=== PATIENT | female | born 1985 | race Caucasian/White ===

== ENCOUNTER 2017-07-03 09:12 | Emergency (ER) | payer OTHER ==
[~2017-07-03] VITALS: Ht 157.5 cm; Wt 84.0 kg
[~2017-07-03 09:12] MED LIST: ACYCLOVIR400 MG PO; FLEXERIL PO; IBUPROFEN200 MG PO; IRON325 M1 PO; NAPROSYN500 MG PO; PRENATA4 PO; ULTRAM50 MG PO
[2017-07-03 10:34] LABS: INFLUENZA A NONE DETECTED (NONE DETECT); INFLUENZA B NONE DETECTED (NONE DETECT)
[2017-07-03 10:45] VITALS: BP 136/79
== END 2017-07-03 10:45 | disposition home or self-care (01) | DRG 866 ==
LOC: ED 09:12
PROVIDERS: Emergency Medicine
DX: B34.9 Viral infection, unspecified (principal)

== ENCOUNTER 2018-02-23 18:17 | Emergency (ER) | payer OTHER ==
[~2018-02-23] VITALS: Ht 157.5 cm; Wt 77.0 kg
[2018-02-23] MEDS ORDERED: LISINOPRIL2.5 MG PO (18:31)
[2018-02-23 19:00] LABS: URINE BILIRUBIN - DIPSTICK NEGATIVE (NEGATIVE); URINE BLOOD DIPSTICK NEGATIVE (NEGATIVE); URINE COLOR YELLOW; URINE GLUCOSE - DIPSTICK NEGATIVE (NEGATIVE); URINE KETONE NEGATIVE (NEGATIVE); URINE LEUK ESTERASE NEGATIVE (NEGATIVE); URINE NITRITE - DIPSTICK NEGATIVE (Negative); URINE PROTEIN - DIPSTICK NEGATIVE (NEG-TRACE); URINE SPECIFIC GRAVITY <=1.005; URINE UROBILINOGEN - DIPSTICK 0.2 E.U./dL (0.2)
[2018-02-23 19:01] LABS: URINE CLARITY CLEAR
[2018-02-23] MEDS ORDERED: DIFLUCAN100 M1 PO (19:09)
[2018-02-23 19:15] VITALS: BP 130/70
== END 2018-02-23 19:15 | disposition home or self-care (01) ==
LOC: ED 18:17
DX: B37.3 Candidiasis of vulva and vagina (principal); I10 Essential (primary) hypertension; L29.2 Pruritus vulvae

== ENCOUNTER 2018-10-29 18:08 | Emergency (ER) | payer OTHER ==
[~2018-10-29] VITALS: Ht 157.5 cm; Wt 87.0 kg
[~2018-10-29 18:08] MED LIST changes: +DIFLUCAN100 M1 PO; +LISINOPRIL2.5 MG PO
[2018-10-29] MEDS ORDERED: LISINOPRIL5 MG PO (18:16)
[2018-10-29] MEDS ORDERED: ALLEGRA-D 2424 HOUR PO (18:26)
[2018-10-29 18:35] VITALS: BP 122/82
== END 2018-10-29 18:35 | disposition home or self-care (01) ==
LOC: ED 18:08
DX: J30.9 Allergic rhinitis, unspecified (principal); H69.93 Unspecified Eustachian tube disorder, bilateral; I10 Essential (primary) hypertension

== ENCOUNTER 2020-12-28 14:06 | Emergency (ER) | payer OTHER ==
[~2020-12-28] VITALS: Ht 157.5 cm; Wt 91.4 kg
[~2020-12-28 14:06] MED LIST changes: +ALLEGRA-D 2424 HOUR PO; +LISINOPRIL5 MG PO
[2020-12-28 14:37] LABS: URINE BILIRUBIN - DIPSTICK NEGATIVE (NEGATIVE); URINE BLOOD DIPSTICK NEGATIVE (NEGATIVE); URINE CLARITY CLEAR; URINE COLOR YELLOW; URINE GLUCOSE - DIPSTICK NEGATIVE (NEGATIVE); URINE KETONE NEGATIVE (NEGATIVE); URINE LEUK ESTERASE NEGATIVE (Negative); URINE NITRITE - DIPSTICK NEGATIVE (Negative); URINE PROTEIN - DIPSTICK NEGATIVE (NEG-TRACE); URINE SPECIFIC GRAVITY 1.025; URINE UROBILINOGEN - DIPSTICK 0.2 E.U./dL (0.2)
[2020-12-28] MEDS ORDERED: METRONIDAZOL500 MG PO (15:52)
[2020-12-28 15:58] VITALS: BP 128/72
== END 2020-12-28 16:08 | disposition home or self-care (01) ==
LOC: ED 14:06
DX: U07.1 COVID-19 (principal); N76.0 Acute vaginitis; I10 Essential (primary) hypertension

== ENCOUNTER 2021-07-07 12:14 | Emergency (ER) | payer OTHER ==
[~2021-07-07] VITALS: Ht 157.5 cm; Wt 85.0 kg
[~2021-07-07 12:14] MED LIST changes: +METRONIDAZOL500 MG PO
[2021-07-07] MEDS ORDERED: OMNI-PAC300 MG PO (15:10)
[2021-07-07 15:55] VITALS: BP 158/88
== END 2021-07-07 15:55 | disposition home or self-care (01) ==
LOC: ED 12:14
DX: R50.9 Fever, unspecified (principal); J02.9 Acute pharyngitis, unspecified; I10 Essential (primary) hypertension; Z20.822 Contact with and (suspected) exposure to COVID-19

== ENCOUNTER 2022-02-04 17:27 | Emergency (ER) | payer OTHER ==
[~2022-02-04] VITALS: Ht 157.5 cm; Wt 90.9 kg
[~2022-02-04 17:27] MED LIST changes: +OMNI-PAC300 MG PO
[2022-02-04 18:54] VITALS: BP 119/75
== END 2022-02-04 18:54 | disposition home or self-care (01) ==
LOC: ED 17:27
DX: J02.9 Acute pharyngitis, unspecified (principal); R50.9 Fever, unspecified; I10 Essential (primary) hypertension; Z20.818 Contact with and (suspected) exposure to other bacterial communicable diseases; Z20.822 Contact with and (suspected) exposure to COVID-19
CPT/HCPCS: J0561

== ENCOUNTER 2022-07-10 16:46 | Emergency (ER) | payer OTHER ==
[~2022-07-10] VITALS: Ht 157.5 cm; Wt 91.4 kg
[2022-07-10 17:21] LABS: BASO% 0.3 % (0-3); EOS% 2.5 % (0-8); HEMATOCRIT 39.6 % (37.0-47.0); IMMATURE GRANULOCYTES 0.1 % (0.0-5.0); LYMPH% 23.4 % (15-41); MEAN CORPUSCULAR HGB 29.9 pG CALC (26.0-32.0); MEAN CORPUSCULAR HGB CONC 32.8 g/dL CAL (32.0-36.0); MONO% 4.8 % (2-13); NEUT# 7.72 thou/uL (2.00-7.15); NEUT% 68.9 % (42-76); RED BLOOD COUNT 4.35 mill/uL (4.20-5.60); RED CELL DISTRI WIDTH 12.8 % (11.5-15.5)
[2022-07-10 17:23] LABS: URINE BILIRUBIN - DIPSTICK NEGATIVE (NEGATIVE); URINE BLOOD DIPSTICK MODERATE (NEGATIVE); URINE COLOR YELLOW; URINE GLUCOSE - DIPSTICK NEGATIVE (NEGATIVE); URINE KETONE NEGATIVE (NEGATIVE); URINE LEUK ESTERASE NEGATIVE (NEGATIVE); URINE NITRITE - DIPSTICK NEGATIVE (Negative); URINE PROTEIN - DIPSTICK NEGATIVE (NEG-TRACE); URINE UROBILINOGEN - DIPSTICK 0.2 E.U./dL (0.2)
[2022-07-10 17:30] LABS: URINE RBC 0-2 RBC/hpf (0-5); URINE SQUAMOUS EPITHELIAL CELL MANY EPI/hpf (0-FEW)
[2022-07-10 17:33] LABS: ALBUMIN 4.3 g/dL (3.2-5.0); ALKALINE PHOSPHATASE 55 u/l (38-126); ANION GAP 10 (6-22 (CALC)); BILIRUBIN, TOTAL 0.2 mg/dL (0.02-1.3); BUN 9 mg/dL (7-17); BUN/CREATININE RATIO 11 (12-20 (CALC)); CARBON DIOXIDE 27 mmol/l (22-30); CHLORIDE 104 mmol/l (95-108); CREATININE 0.8 mg/dL (0.5-1.0); GFR FOR AFR.AMER. > 60 ML/MIN (>=60 (CALC)); GFR OTHER RACES > 60 ML/MIN (>=60 (CALC)); POTASSIUM 4.1 mmol/l (3.5-5.1); SGOT/AST 23 u/l (14-36); SODIUM 137 mmol/l (137-146); TOTAL PROTEIN 7.4 g/dL (6.3-8.2)
[2022-07-10 17:50] LABS: BETA-HCG, QUANT(RESULT NUMBER) 1660 mIU/mL
[2022-07-10 19:24] VITALS: BP 107/71
== END 2022-07-10 19:30 | disposition home or self-care (01) ==
LOC: ED 16:46
PROVIDERS: Nurse Practitioner
DX: O20.0 Threatened abortion (principal); O10.919 Unspecified pre-existing hypertension complicating pregnancy, unspecified trimester; Z3A.00 Weeks of gestation of pregnancy not specified
CPT/HCPCS: J2790

== ENCOUNTER 2022-09-23 15:47 | Emergency (ER) | payer OTHER ==
[~2022-09-23] VITALS: Ht 157.5 cm; Wt 90.4 kg
[2022-09-23] VITALS (8 sets, daily range): BP systolic 94–137; BP diastolic 52–87
[2022-09-23 17:26] LABS: BASO% 0.4 % (0-3); HEMATOCRIT 39.3 % (37.0-47.0); HEMOGLOBIN 12.8 g/dl (12.0-16.0); IMMATURE GRANULOCYTES 0.2 % (0.0-5.0); LYMPH% 18.2 % (15-41); MEAN CELL VOLUME 89.7 fL CALC (80.0-100.0); MEAN CORPUSCULAR HGB 29.2 pG CALC (26.0-32.0); MEAN CORPUSCULAR HGB CONC 32.6 g/dL CAL (32.0-36.0); NEUT# 7.49 thou/uL (2.00-7.15); NEUT% 74.2 % (42-76); RED BLOOD COUNT 4.38 mill/uL (4.20-5.60); RED CELL DISTRI WIDTH 12.8 % (11.5-15.5)
[2022-09-23 17:38] LABS: ALBUMIN 4.4 g/dL (3.2-5.0); ALKALINE PHOSPHATASE 65 u/l (38-126); ANION GAP 13 (6-22 (CALC)); BILIRUBIN, TOTAL 0.3 mg/dL (0.02-1.3); BUN 13 mg/dL (7-17); BUN/CREATININE RATIO 19 (12-20 (CALC)); CARBON DIOXIDE 25 mmol/l (22-30); CHLORIDE 106 mmol/l (95-108); CREATININE 0.7 mg/dL (0.5-1.0); GFR FOR AFR.AMER. > 60 ML/MIN (>=60 (CALC)); GFR OTHER RACES > 60 ML/MIN (>=60 (CALC)); POTASSIUM 4.4 mmol/l (3.5-5.1); SGOT/AST 29 u/l (14-36); SODIUM 139 mmol/l (137-146); TOTAL PROTEIN 7.4 g/dL (6.3-8.2)
[2022-09-23 18:09] LABS: TSH, 3RD GENERATION 0.97 uIU/mL (0.47 - 4.68)
[2022-09-23] MEDS ORDERED: ZESTRIL5 M1 PO (18:22)
== END 2022-09-23 18:39 | disposition home or self-care (01) ==
LOC: ED 15:47
PROVIDERS: Family Medicine
DX: R53.83 Other fatigue (principal); I10 Essential (primary) hypertension; E66.9 Obesity, unspecified; Z20.822 Contact with and (suspected) exposure to COVID-19

== ENCOUNTER 2022-11-30 17:04 | Emergency (ER) | payer SELFPAY ==
[~2022-11-30] VITALS: Ht 157.5 cm; Wt 86.1 kg
[2022-11-30] VITALS (9 sets, daily range): BP systolic 97–119; BP diastolic 55–68
[~2022-11-30 17:04] MED LIST changes: +ZESTRIL5 M1 PO
[2022-11-30 17:39] LABS: BASO% 0.2 % (0-3); HEMOGLOBIN 13.5 g/dl (12.0-16.0); IMMATURE GRANULOCYTES 0.1 % (0.0-5.0); LYMPH% 23.9 % (15-41); MEAN CELL VOLUME 89.3 fL CALC (80.0-100.0); MEAN CORPUSCULAR HGB 29.4 pG CALC (26.0-32.0); MEAN CORPUSCULAR HGB CONC 32.9 g/dL CAL (32.0-36.0); MONO% 5.3 % (2-13); NEUT# 6.47 thou/uL (2.00-7.15); NEUT% 68.5 % (42-76); RED BLOOD COUNT 4.59 mill/uL (4.20-5.60); RED CELL DISTRI WIDTH 12.8 % (11.5-15.5)
[2022-11-30 17:52] LABS: ALBUMIN 4.6 g/dL (3.2-5.0); ALKALINE PHOSPHATASE 54 u/l (38-126); ANION GAP 14 (6-22 (CALC)); BILIRUBIN, TOTAL 0.4 mg/dL (0.02-1.3); BUN 12 mg/dL (7-17); BUN/CREATININE RATIO 19 (12-20 (CALC)); CARBON DIOXIDE 25 mmol/l (22-30); CHLORIDE 103 mmol/l (95-108); CREATININE 0.6 mg/dL (0.5-1.0); GFR FOR AFR.AMER. > 60 ML/MIN (>=60 (CALC)); GFR OTHER RACES > 60 ML/MIN (>=60 (CALC)); POTASSIUM 4.1 mmol/l (3.5-5.1); SGOT/AST 23 u/l (14-36); SODIUM 139 mmol/l (137-146); TOTAL PROTEIN 7.6 g/dL (6.3-8.2)
== END 2022-11-30 19:33 | disposition home or self-care (01) | DRG 313 ==
LOC: ED 17:04
PROVIDERS: Family Medicine
DX: R07.9 Chest pain, unspecified (principal); I10 Essential (primary) hypertension; E66.9 Obesity, unspecified

== ENCOUNTER 2023-01-20 19:24 | Observation (INO) | payer OTHER ==
[~2023-01-20] VITALS: Ht 157.5 cm; Wt 82.4 kg
--- NOTE | 2023-01-20 19:45 | NUR ---
PT AMBULATED TO RM 14 W/ STEADY GAIT.
[2023-01-20 20:01] VITALS: BP 110/65
[2023-01-20 20:29] LABS: BASO% 0.3 % (0-3); EOS% 2.1 % (0-8); HEMATOCRIT 38.2 % (37.0-47.0); HEMOGLOBIN 12.4 g/dl (12.0-16.0); IMMATURE GRANULOCYTES 0.7 % (0.0-5.0); LYMPH% 28.5 % (15-41); MEAN CELL VOLUME 90.5 fL CALC (80.0-100.0); MEAN CORPUSCULAR HGB 29.4 pG CALC (26.0-32.0); MEAN CORPUSCULAR HGB CONC 32.5 g/dL CAL (32.0-36.0); MONO% 6.8 % (2-13); NEUT# 4.66 thou/uL (2.00-7.15); NEUT% 61.6 % (42-76); RED BLOOD COUNT 4.22 mill/uL (4.20-5.60); RED CELL DISTRI WIDTH 12.7 % (11.5-15.5)
--- NOTE | 2023-01-20 20:30 | NUR ---
PT RESTING IN BED. RESP EVEN AND UNLABORED. NO DISTRESS NOTED. A&O X 3. SKIN W/P/D. VSS. APPEARS ANXIOUS. INFORMED PT OF PLAN OF CARE AND WAIT TIME AND SHE VERBALIZED UNDERSTANDING. CALL LIGHT IN REACH.
[2023-01-20 20:45] LABS: ALKALINE PHOSPHATASE 61 u/l (38-126); ANION GAP 10 (6-22 (CALC)); BILIRUBIN, TOTAL 0.4 mg/dL (0.02-1.3); BUN 11 mg/dL (7-17); BUN/CREATININE RATIO 18 (12-20 (CALC)); CARBON DIOXIDE 25 mmol/l (22-30); CHLORIDE 106 mmol/l (95-108); CREATININE 0.6 mg/dL (0.5-1.0); GFR FOR AFR.AMER. > 60 ML/MIN (>=60 (CALC)); GFR OTHER RACES > 60 ML/MIN (>=60 (CALC)); LIPASE 68 u/l (23-300); POTASSIUM 3.8 mmol/l (3.5-5.1); SGOT/AST 25 u/l (14-36); SODIUM 137 mmol/l (137-146); TOTAL PROTEIN 7.3 g/dL (6.3-8.2)
[2023-01-20 21:20] VITALS: BP 116/73
--- NOTE | 2023-01-20 21:30 | NUR ---
PT CONTINUES RESTING IN BED W/ NO DISTRESS. REPORTS PAIN 3/10 IN LUE/SHOULDER. MD AWARE.
[2023-01-20 22:30] VITALS: BP 119/77
--- NOTE | 2023-01-20 22:30 | NUR ---
PT RESTING IN BED. TEARFUL AFTER BEING INFORMED OF ADMISSION FOR OBSERVATION. ANSWERED QUESTIONS AND EXPLAINED PLAN OF CARE AGAIN. PT VERBALIZED UNDERSTANDING. CALL LIGHT IN REACH.
[2023-01-20 23:00] VITALS: BP 110/68
--- NOTE | 2023-01-20 23:05 | NUR ---
PT'S FATHER BEDSIDE AND STATES THAT THEY ARE "DECIDING IF SHE IS GOING TO STAY". FATHER VOICED CONCERNS ABOUT LEVEL OF CARE [facility] WILL BE ABLE TO PROVIDE FOR THE PATIENT AND STATES THAT HE MAY TAKE HER TO ANOTHER HOSPITAL. AGAIN ANSWERED ALL QUESTIONS FROM PT AND FAMILY AND LEFT THEM TO DECIDE REGARDING ADMISSION.
--- NOTE | 2023-01-20 23:34 | NUR ---
PT ARRIVED TO THE FLOOR FROM [facility] VIA AT 2325. ALERT AND ORIENTED X 3. ON TELE, WEIGHT DONE. SAFETY PRECAUTIONS MAINTAINED. CALL LIGHT IN REACH
--- NOTE | 2023-01-20 23:40 | NUR ---
PT AGREES TO STAY FOR ADMISSION. RESTING IN BED. RESP REMAIN EVEN AND UNLABORED. NO DISTRESS NOTED. DENIES PAIN. PT DECLINED NTG SUBLINGUAL.
[2023-01-20 23:42] VITALS: BP 110/48
[2023-01-21] VITALS (7 sets, daily range): BP systolic 80–112; BP diastolic 38–71
--- NOTE | 2023-01-21 | NUR ---
PT TRANSPORTED TO THE FLOOR VIA WHEELCHAIR IN STABLE CONDITION.
[2023-01-21 05:45] LABS: HEMATOCRIT 37.3 % (37.0-47.0); HEMOGLOBIN 12.1 g/dl (12.0-16.0); MEAN CELL VOLUME 91.4 fL CALC (80.0-100.0); MEAN CORPUSCULAR HGB 29.7 pG CALC (26.0-32.0); MEAN CORPUSCULAR HGB CONC 32.4 g/dL CAL (32.0-36.0); RED BLOOD COUNT 4.08 mill/uL (4.20-5.60); RED CELL DISTRI WIDTH 12.6 % (11.5-15.5)
[2023-01-21 06:05] LABS: ALBUMIN 3.6 g/dL (3.2-5.0); ALKALINE PHOSPHATASE 52 u/l (38-126); ANION GAP 10 (6-22 (CALC)); BILIRUBIN, TOTAL 0.4 mg/dL (0.02-1.3); BUN 10 mg/dL (7-17); BUN/CREATININE RATIO 15 (12-20 (CALC)); CALCULATED LDLCHOLESTEROL 117 mg/dL (62-129 (CALC)); CARBON DIOXIDE 25 mmol/l (22-30); CHLORIDE 106 mmol/l (95-108); CHOLESTEROL HDL RATIO 5.6 (<4.4 (CALC)); CREATININE 0.7 mg/dL (0.5-1.0); GFR FOR AFR.AMER. > 60 ML/MIN (>=60 (CALC)); GFR OTHER RACES > 60 ML/MIN (>=60 (CALC)); HDL CHOLESTEROL 34 mg/dL (39.0-59.0); POTASSIUM 3.8 mmol/l (3.5-5.1); SGOT/AST 22 u/l (14-36); SODIUM 138 mmol/l (137-146); TOTAL CHOLESTEROL 193 mg/dl (0-199); TOTAL PROTEIN 6.4 g/dL (6.3-8.2); TOTAL TRIGLYCERIDES 209 mg/dl (0-149); VLDL CHOLESTROL 42 mg/dl (1-41 (CALC))
--- NOTE | 2023-01-21 08:00 | NUR ---
GOT REPORT FROM INSURANCE CLAIM REPRESENTATIVE NURSE. PATIENT ASSESSED. PATIENT IS STABLE. NO COMPLAINTS AT THIS TIME. CALL LIGHT AND BED SIDE TABLE WITH IN REACH. ADVISED TO CALL IF NEEDING ANYTHING. PATIENT VERBALIZED
--- NOTE | 2023-01-21 12:00 | NUR ---
PATIENT SITING UP IN BED. NO COMPLAINTS OR NEEDS AT THIS TIME. CALL LIGHT AND BEDISDE TABLE WITH IN REACH. ADVISED TO CALL IF NEEDING ANYTHING.
[2023-01-21 13:10] LABS: URINE BILIRUBIN - DIPSTICK Negative (NEGATIVE); URINE BLOOD DIPSTICK Negative (NEGATIVE); URINE GLUCOSE - DIPSTICK Negative (NEGATIVE); URINE KETONE Negative (NEGATIVE); URINE LEUK ESTERASE Negative (NEGATIVE); URINE NITRITE - DIPSTICK Negative (Negative); URINE PROTEIN - DIPSTICK Negative (NEG-TRACE); URINE SPECIFIC GRAVITY 1.015; URINE UROBILINOGEN - DIPSTICK 0.2 E.U./dL (0.2)
[2023-01-21 13:13] LABS: URINE COLOR Yellow
[2023-01-22 04:37] VITALS: BP 114/72
[2023-01-22 05:22] LABS: HEMATOCRIT 38.1 % (37.0-47.0); HEMOGLOBIN 12.6 g/dl (12.0-16.0); MEAN CELL VOLUME 92.7 fL CALC (80.0-100.0); MEAN CORPUSCULAR HGB 30.7 pG CALC (26.0-32.0); MEAN CORPUSCULAR HGB CONC 33.1 g/dL CAL (32.0-36.0); RED BLOOD COUNT 4.11 mill/uL (4.20-5.60); RED CELL DISTRI WIDTH 12.7 % (11.5-15.5)
[2023-01-22 05:29] LABS: ALBUMIN 3.5 g/dL (3.2-5.0); ALKALINE PHOSPHATASE 55 u/l (38-126); ANION GAP 11 (6-22 (CALC)); BUN 16 mg/dL (7-17); BUN/CREATININE RATIO 18 (12-20 (CALC)); CARBON DIOXIDE 26 mmol/l (22-30); CHLORIDE 107 mmol/l (95-108); CREATININE 0.9 mg/dL (0.5-1.0); GFR FOR AFR.AMER. > 60 ML/MIN (>=60 (CALC)); GFR OTHER RACES > 60 ML/MIN (>=60 (CALC)); POTASSIUM 3.9 mmol/l (3.5-5.1); SGOT/AST 20 u/l (14-36); SODIUM 140 mmol/l (137-146); TOTAL PROTEIN 6.2 g/dL (6.3-8.2)
[2023-01-22 05:34] LABS: BILIRUBIN, TOTAL 0.2 mg/dL (0.02-1.3)
--- NOTE | 2023-01-22 07:00 | NUR ---
RECEIVED BEDSIDE REPORT FROM SHELLEY JIMENES. PT RESTING IN BED WITH EYES CLOSED. ALL SAFETY MEASURES IN PLACE. VSS. NO NEEDS AT THIS TIME.
[2023-01-22 07:51] VITALS: BP 107/70
[2023-01-22 12:05] VITALS: BP 107/67
--- NOTE | 2023-01-22 14:33 | NUR ---
PT DISCHARGE EDUCATION GIVEN. ALL QUESTIONS ANSWERED. PT INDICATES UNDERSTANDING. WILL FOLLOW UP WITH FILM DRYING MACHINE OPERATOR WITHIN ONE WEEK. IV CATHETER REMOVED INTACT. PT TOLERATED WELL. INJECTION MOULDING MACHINE OPERATOR REMOVED.
== END 2023-01-22 14:47 | disposition home or self-care (01) | DRG 313 ==
LOC: ED 19:24 → ED-I 21:26 → ED 21:40 → MS2 21:41
PROVIDERS: Nurse Practitioner; ADMIT Student in an Organized Health Care Education/Training Program; ATTEND Student in an Organized Health Care Education/Training Program
DX: R07.9 Chest pain, unspecified (principal); I10 Essential (primary) hypertension; K21.9 Gastro-esophageal reflux disease without esophagitis; Z83.79 Family history of other diseases of the digestive system
CPT/HCPCS: G0378; J1650

== ENCOUNTER 2023-02-12 08:38 | Emergency (ER) | payer OTHER ==
[~2023-02-12] VITALS: Ht 157.5 cm; Wt 82.0 kg
[2023-02-12 09:06] VITALS: BP 108/70
[2023-02-12 09:15] VITALS: BP 101/61
[2023-02-12 09:30] VITALS: BP 111/71
[2023-02-12 09:45] VITALS: BP 111/75
[2023-02-12 11:27] VITALS: BP 111/75
== END 2023-02-12 11:34 | disposition home or self-care (01) | DRG 833 ==
LOC: ED 08:38
DX: O98.519 Other viral diseases complicating pregnancy, unspecified trimester (principal); B34.9 Viral infection, unspecified; O10.919 Unspecified pre-existing hypertension complicating pregnancy, unspecified trimester; Z3A.00 Weeks of gestation of pregnancy not specified; Z20.822 Contact with and (suspected) exposure to COVID-19

== ENCOUNTER 2023-11-22 14:28 | Emergency (ER) | payer OTHER ==
[~2023-11-22] VITALS: Ht 160 cm; Wt 87.9 kg
[2023-11-22 14:47] VITALS: BP 151/95
[2023-11-22 15:01] VITALS: BP 114/78
[2023-11-22 15:16] VITALS: BP 133/81
[2023-11-22 15:23] VITALS: BP 132/77
== END 2023-11-22 16:22 | disposition home or self-care (01) ==
LOC: ED 14:28
DX: Z45.2 Encounter for adjustment and management of vascular access device (principal); I10 Essential (primary) hypertension

== ENCOUNTER 2023-11-23 13:01 | Emergency (ER) | payer OTHER ==
[~2023-11-23] VITALS: Ht 160 cm; Wt 80.0 kg
[2023-11-23 14:12] VITALS: BP 116/69
[2023-11-23 14:20] VITALS: BP 113/76
[2023-11-23 14:40] VITALS: BP 109/62
[2023-11-23 15:00] VITALS: BP 122/84
[2023-11-23 15:11] VITALS: BP 122/84
== END 2023-11-23 15:20 | disposition home or self-care (01) ==
LOC: ED 13:01
DX: Z45.2 Encounter for adjustment and management of vascular access device (principal); I10 Essential (primary) hypertension